=== PATIENT | male | born 1955 | race African-American/Black ===

== ENCOUNTER 2016-09-10 17:18 | Observation (INO) | payer OTHER ==
[2016-09-10] MEDS ORDERED: ASPIRIN 81 MG TABLET, CHEWABLE PO ONE (17:26)
--- NOTE | 2016-09-10 17:26 | ER Document Report ---
ED Medical Screen (RME) - General Stated Complaint: FAST HEART RATE,CHEST PAIN Notes: Patient reports history of A. fib. He is currently taking Coumadin for that. Recently drove 1300 miles from [facility] to be with his mother she was in a car accident. Reports he started feeling like his heart was racing. He reports he was cardioverted in June. Denies other symptoms such as fever vomiting diarrhea I have greeted and performed a rapid initial assessment of this patient. A comprehensive ED assessment and evaluation of the patient, analysis of test results and completion of the medical decision making process will be conducted by additional ED providers.
--- NOTE | 2016-09-10 17:48 | ER Document Report ---
ED General - General Stated Complaint: FAST HEART RATE,CHEST PAIN Mode of Arrival: Ambulatory Information source: Patient Notes: 61-year-old male history of A. fib who is on metoprolol and Coumadin presents with complaints of his heart rate racing. Patient notes that he drove here 1300 miles, has not been taking his medications appropriately. Patient does know she did take his Coumadin. Denies any chest pain or shortness of breath notes his heart rate is in the 120s to 130s Patient did take metoprolol prior to arrival - HPI Onset: Just prior to arrival Onset/Duration: Sudden Quality of pain: No pain Severity: Moderate Pain Level: Denies Associated symptoms: Other Exacerbated by: Denies Relieved by: Denies Similar symptoms previously: Yes Recently seen / treated by doctor: Yes - Related Data Home Medications: Current Home Medications Atorvastatin Calcium 20 mg PO DAILY 09/10/16 [History] Losartan Potassium 25 mg PO DAILY 09/10/16 [History] Metoprolol Tartrate [Metoprolol Tartrate] 3 tab PO BID 09/10/16 [History] Warfarin Sodium [Jantoven] 1.5 tab PO DAILY 09/10/16 [History] Past Medical History - Social History Smoking Status: Never Smoker Cigarette use (# per day): No Chew tobacco use (# tins/day): No Smoking Education Provided: No Family History: Reviewed & Not Pertinent Review of Systems - Review of Systems Notes: REVIEW OF SYSTEMS: CONSTITUTIONAL : Denies fever, chills, or sweats. Denies recent illness. EENT: Denies eye, ear, throat, or mouth pain or symptoms. Denies nasal or sinus congestion or discharge. Denies throat, tongue, or mouth swelling or difficulty swallowing. CARDIOVASCULAR: Admits palpitations RESPIRATORY: Denies cough, cold, or chest congestion. Denies shortness of breath, difficulty breathing, or wheezing. GASTROINTESTINAL: Denies abdominal pain or distention. Denies nausea, vomiting , or diarrhea. Denies blood in vomitus, stools, or per rectum. Denies black, tarry stools. Denies constipation. GENITOURINARY: Denies difficulty urinating, painful urination, burning, frequency, blood in urine, or discharge. MUSCULOSKELETAL: Denies back or neck pain or stiffness. Denies joint pain or swelling. SKIN: Denies rash, lesions or sores. HEMATOLOGIC : Denies easy bruising or bleeding. LYMPHATIC: Denies swollen, enlarged glands. NEUROLOGICAL: Denies confusion or altered mental status. Denies passing out or loss of consciousness. Denies dizziness or lightheadedness. Denies headache. Denies weakness or paralysis or loss of use of either side. Denies problems with gait or speech. Denies sensory loss, numbness, or tingling. Denies seizures. PSYCHIATRIC: Denies anxiety or stress. Denies depression, suicidal ideation, or homicidal ideation. ALL OTHER SYSTEMS REVIEWED AND NEGATIVE. Dictation was performed using [employer] voice recognition software PHYSICAL EXAMINATION: GENERAL: Well-appearing, well-nourished and in no acute distress. HEAD: Atraumatic, normocephalic. EYES: Pupils equal round and reactive to light, extraocular movements intact, sclera anicteric, conjunctiva are normal. ENT: Nares patent, oropharynx clear without exudates. Moist mucous membranes. NECK: Normal range of motion, supple without lymphadenopathy LUNGS: Breath sounds clear to auscultation bilaterally and equal. No wheezes rales or rhonchi. HEART: A. fib RVR ABDOMEN: Soft, nontender, nondistended abdomen. No guarding, no rebound. No masses appreciated. Musculoskeletal: Normal range of motion, no pitting or edema. No cyanosis. NEUROLOGICAL: Cranial nerves grossly intact. Normal speech, normal gait. Normal sensory, motor exams PSYCH: Normal mood, normal affect. SKIN: Warm, Dry, normal turgor, no rashes or lesions noted. Physical Exam - Vital signs Vitals: Resp Pulse Ox 19 95 09/10/16 17:40 09/10/16 17:40 Course - Re-evaluation Re-evalutation: 09/10/16 17:47 Patient is currently in A. fib RVR, heart rate is anywhere between 95-145, I will give some time for the metoprolol to continue working however if it does not begin to lower his heart rate I will have to start another medication - Vital Signs Vital signs: Temp Pulse Resp BP Pulse Ox 98.6 F 17 165/109 H 98 09/10/16 18:03 09/10/16 18:01 09/10/16 18:01 09/10/16 18:01 - Laboratory Result Diagrams: 09/10/16 17:47 09/10/16 17:47 Laboratory results interpreted by me: 09/10/16 09/10/16 17:47 17:47 MCH 26.5 L RDW 15.6 H PT 21.7 H APTT 39.9 H - Diagnostic Test Radiology reviewed: Image reviewed, Reports reviewed - EKG Interpretation by Me EKG shows normal: Sinus rhythm, [place] Rate: Tachycardia Rhythm: A.Fib When compared to previous EKG there are: Previous EKG unavailable Critical Care Note - Critical Care Note Total time excluding time spent on procedures (mins): 37 Comments: 37 minutes of critical care time spent in direct contact evaluating and reevaluating the patient, treating symptoms, reviewing labs and studies and speaking with family and consultants excluding any procedures Discharge - Discharge Clinical Impression: Atrial fibrillation with rapid ventricular response Hypertension Qualifiers: Hypertension type: essential hypertension Qualified Code(s): I10 - Essential ( primary) hypertension Condition: Stable Disposition: ADMITTED OBSERVATION Admitting Provider: Hospitalist Unit Admitted: Telemetry
[2016-09-10 18:07] LABS: ABSOLUTE EOSINOPHILS # (AUTO) 0.1 10^3/uL (0.0-0.6); ABSOLUTE LYMPHOCYTES (AUTO) 2.4 10^3/uL (0.5-4.7); ABSOLUTE MONOCYTES (AUTO) 0.7 10^3/uL (0.1-1.4); ABSOLUTE NEUT (AUTO) 3.3 10^3/uL (1.7-8.2); BASOPHILS % (AUTO) 0.4 % (0-2); EOSINOPHILS % (AUTO) 2.1 % (0-6); HEMATOCRIT 42.8 % (37.9-51.0); HGB HCT DIFFERENCE -0.8; LYMPHOCYTES % (AUTO) 37.1 % (13-45); MEAN CORPUSCULAR HEMOGLOBIN 26.5 pg (27.0-33.4); MEAN CORPUSCULAR HGB CONC 32.8 g/dL (32.0-36.0); MEAN CORPUSCULAR VOLUME 81 fl (80-97); MONOCYTES % (AUTO) 10.4 % (3-13); RED CELL DISTRIBUTION WIDTH 15.6 % (11.5-14.0); WHITE BLOOD COUNT 6.6 10^3/uL (4.0-10.5)
[2016-09-10 18:16] LABS: PROTHROMBIN TIME 21.7 SEC (11.4-15.4)
[2016-09-10 18:17] LABS: PARTIAL THROMBOPLASTIN TIME 39.9 SEC (23.5-35.8)
[2016-09-10] MEDS ORDERED: DILTIAZEM HCL/D5W 125 ML IV PRN (18:23)
[2016-09-10] MEDS ORDERED: DILTIAZEM HCL INJ 25 MG/5 ML VIAL IV ONE (18:23)
[2016-09-10] MEDS ORDERED: NORMAL SALINE 1000 ML 1,000 ML IV ONE (18:24)
[2016-09-10 18:28] LABS: ALANINE AMINOTRANSFERASE 25 U/L (21-72); ALBUMIN 4.1 g/dL (3.5-5.0); ALKALINE PHOSPHATASE 94 U/L (38-126); ANION GAP 13 (5-19); ASPARTATE AMINO TRANSFERASE 28 U/L (17-59); BILIRUBIN,TOTAL 0.7 mg/dL (0.2-1.3); BLOOD UREA NITROGEN 12 mg/dL (7-20); CALCIUM 9.1 mg/dL (8.4-10.2); CARBON DIOXIDE 25 mmol/L (22-30); CHLORIDE 104 mmol/L (98-107); CREATINE KINASE 105 U/L (55-170); CREATININE RESULT 1.04 mg/dL (0.52-1.25); GLUCOSE 96 mg/dL (75-110); POTASSIUM 3.9 mmol/L (3.6-5.0); TOTAL PROTEIN 6.9 g/dL (6.3-8.2)
[2016-09-10 18:42] LABS: CREATINE KINASE MB 0.56 ng/mL (<4.55)
[2016-09-10 18:43] LABS: TROPONIN I < 0.012 ng/mL
[2016-09-10] MEDS ORDERED: ACETAMINOPHEN 325 MG TABLET PO PRN (18:57)
[2016-09-10] MEDS ORDERED: ONDANSETRON HCL INJ/PF 4 MG/2 ML SDV IV PRN (18:57)
--- NOTE | 2016-09-10 19:08 | PDOC H&P ---
History of Present Illness Admission Date/PCP: 09/10/16 18:44 Patient complains of: Elevated heart rate History of Present Illness: BAL LÓPEZ is a 61 year old male, with hypertension and atrial fibrillation missed the doses of all his medications for 2 days started to note increasing heart rate and palpitations. Patient has an ric in her cell phone and monitors his heart rate. He had traveled from [place] the [facility] to visit his monitor and during that period he has not taken his medication. While at home in his heart monitor he noted that his heart rate was elevated. He feels a little bit tired. He took his medication but heart rate still elevated therefore the patient presents to the emergency room where he was given Cardizem IV and started on a drip. His heart rate got controlled. He was referred for admission. He denies any chest pain, shortness of breath , nausea or vomiting, diaphoresis. No dizziness or lightheadedness. Past Medical History Cardiac Medical History: Reports: Atrial Fibrillation, Hypertension Endocrine Medical History: Reports: Obesity, Other - Patient reports prediabetes stage Past Surgical History Past Surgical History: Reports: Orthopedic Surgery - Left Knee, Other - Cardioversion Social History Information Source: Patient Smoking Status: Never Smoker Frequency of Alcohol Use: None Hx Recreational Drug Use: No Drugs: None Family History Family History: Other - Atrial fibrillation Parental Family History Reviewed: Yes Children Family History Reviewed: Yes Sibling(s) Family History Reviewed.: Yes Medication/Allergy Home Medications: Atorvastatin Calcium 20 mg PO DAILY 09/10/16 Losartan Potassium 25 mg PO DAILY 09/10/16 Metoprolol Tartrate [Metoprolol Tartrate] 3 tab PO BID 09/10/16 Warfarin Sodium [Jantoven] 1.5 tab PO DAILY 09/10/16 Allergies/Adverse Reactions: No Known Allergies Allergy (Unverified 09/10/16 18:38) Review of Systems Constitutional: ABSENT: chills, fever(s), headache(s), night sweats, weight gain , weight loss Eyes: ABSENT: visual disturbances Ears: ABSENT: hearing changes Nose, Mouth, and Throat: ABSENT: mouth pain, sore throat Cardiovascular: ABSENT: chest pain, dyspnea on exertion, edema, orthropnea, palpitations Respiratory: ABSENT: cough, hemoptysis Gastrointestinal: ABSENT: abdominal pain, constipation, diarrhea, hematemesis, hematochezia, nausea, vomiting Genitourinary: ABSENT: dysuria, hematuria Musculoskeletal: ABSENT: joint swelling Integumentary: ABSENT: rash, wounds Neurological: ABSENT: abnormal gait, abnormal speech, confusion, dizziness, focal weakness, syncope Psychiatric: ABSENT: anxiety, depression, homidical ideation, suicidal ideation Endocrine: ABSENT: cold intolerance, heat intolerance, polydipsia, polyuria Hematologic/Lymphatic: ABSENT: easy bleeding, easy bruising Physical Exam Vital Signs: Temp Pulse Resp BP Pulse Ox 98.6 F 22 H 117/63 100 09/10/16 18:03 09/10/16 18:46 09/10/16 18:46 09/10/16 18:46 General appearance: PRESENT: no acute distress, cooperative, morbidly obese Head exam: PRESENT: atraumatic, normocephalic Eye exam: PRESENT: conjunctiva pink, EOMI, PERRLA. ABSENT: scleral icterus Ear exam: PRESENT: drainage, normal external ear exam Mouth exam: PRESENT: moist, neck supple, tongue midline Neck exam: ABSENT: carotid bruit, JVD, lymphadenopathy, thyromegaly Respiratory exam: PRESENT: clear to auscultation jonathan. ABSENT: rales, rhonchi, wheezes Cardiovascular exam: PRESENT: irregular rhythm, +S1, +S2. ABSENT: diastolic murmur, gallop, rubs, systolic murmur Pulses: PRESENT: normal dorsalis pedis pul Vascular exam: PRESENT: normal capillary refill GI/Abdominal exam: PRESENT: normal bowel sounds, soft. ABSENT: distended - Obese, guarding, mass, organolmegaly, rebound, tenderness Rectal exam: PRESENT: deferred Extremities exam: PRESENT: full ROM. ABSENT: calf tenderness, clubbing, pedal edema Neurological exam: PRESENT: alert, awake, oriented to person, oriented to place , oriented to time, oriented to situation Psychiatric exam: PRESENT: appropriate affect, normal mood. ABSENT: homicidal ideation, suicidal ideation Skin exam: PRESENT: dry, intact, warm. ABSENT: cyanosis, rash Results Impressions: Chest X-Ray 09/10/16 17:25 IMPRESSION: NO ACUTE RADIOGRAPHIC FINDING IN THE CHEST. Assessment & Plan - Diagnosis (1) Atrial fibrillation with RVR Is this a current diagnosis for this admission?: Yes (2) HTN (hypertension) Qualifiers: Hypertension type: essential hypertension Qualified Code(s): I10 - Essential (primary) hypertension Is this a current diagnosis for this admission?: Yes (3) Diabetes mellitus type II, controlled Qualifiers: Diabetes mellitus complication status: with unspecified complications Diabetes mellitus detention insulin use: without intermediate card tender use Qualified Code(s): E11.8 - Type 2 diabetes mellitus with unspecified complications; Z79.4 - termite technician (current) use of insulin Is this a current diagnosis for this admission?: Yes (4) Morbid obesity Qualifiers: Obesity type: unspecified obesity type Qualified Code(s): E66.01 - Morbid (severe) obesity due to excess calories Is this a current diagnosis for this admission?: Yes - Time Time Spent: 30 to 50 Minutes - Plan Summary Plan Summary: Patient will be under observation. We will resume the metoprolol. We did a Cardizem drip to off. We will increase the warfarin to 6 mg and recheck INR in the morning. If heart rate is controlled we will discharge the patient in the morning.
[2016-09-10 20:02] LABS: THYROID STIMULATING HORMONE 2.67 uIU/mL (0.47-4.68)
[2016-09-10] MEDS ORDERED: WARFARIN SODIUM 3 MG TABLET PO SCH (22:00)
[2016-09-11] MEDS ORDERED: LANSOPRAZOLE 30 MG TAB.RAP.DR PO SCH (06:00)
[2016-09-11 06:10] LABS: PROTHROMBIN TIME 23.2 SEC (11.4-15.4)
[2016-09-11 06:25] LABS: ANION GAP 8 (5-19); BLOOD UREA NITROGEN 9 mg/dL (7-20); CARBON DIOXIDE 28 mmol/L (22-30); CHLORIDE 106 mmol/L (98-107); CREATININE RESULT 0.99 mg/dL (0.52-1.25); GLUCOSE 93 mg/dL (75-110); MAGNESIUM 1.9 mg/dL (1.6-2.3); PHOSPHORUS 3.3 mg/dL (2.5-4.5); POTASSIUM 3.7 mmol/L (3.6-5.0); SODIUM 141.9 mmol/L (137-145)
[2016-09-11] MEDS ORDERED: METOPROLOL SUCCINATE 25 MG TAB.SR.24H PO ONE (09:30)
[2016-09-11] MEDS ORDERED: METOPROLOL TARTRATE 25 MG TABLET PO ONE (09:30)
[2016-09-11] MEDS ORDERED: LOSARTAN POTASSIUM 25 MG TABLET PO SCH (10:00)
[2016-09-11] MEDS ORDERED: DOCUSATE SODIUM 100 MG CAPSULE PO SCH (10:00)
[2016-09-11] MEDS ORDERED: ATORVASTATIN CALCIUM 20 MG TABLET PO SCH (10:00)
--- NOTE | 2016-09-11 10:41 | PDOC DISCHARGE SUMMARY ---
General - Admit/Disc Date/PCP Admission Date/Primary Care Provider: 09/10/16 18:57 Discharge Date: 09/11/16 - Discharge Diagnosis (1) Atrial fibrillation with RVR Is this a current diagnosis for this admission?: Yes (2) HTN (hypertension) Is this a current diagnosis for this admission?: Yes (3) Diabetes mellitus type II, controlled Is this a current diagnosis for this admission?: Yes (4) Morbid obesity Is this a current diagnosis for this admission?: Yes - Additional Information Resuscitation Status: Full Code Discharge Diet: Cardiac - low-fat low-salt, Diabetic - no concentrated sweets Discharge Activity: Activity As Tolerated, Balance Activity w/Rest, Slowly Increase Activity Home Medications: Atorvastatin Calcium [Lipitor 20 mg Tablet] 20 mg PO DAILY 09/11/16 Losartan Potassium [Cozaar 25 mg Tablet] 25 mg PO DAILY 09/11/16 Metoprolol Tartrate [Lopressor 25 mg Tablet] 75 mg PO BID 09/11/16 Warfarin Sodium [Jantoven] 7.5 mg PO DAILY 09/11/16 Additional Information: PT/INR with primary care physician in one week History of Present Illness Patient complains of: Palpitation History of Present Illness: BAL LÓPEZ is a 61 year old male, with hypertension and atrial fibrillation missed the doses of all his medications for 2 days started to note increasing heart rate and palpitations. Patient has an ric in her cell phone and monitors his heart rate. He had traveled from [place] the [facility] to visit his monitor and during that period he has not taken his medication. While at home in his heart monitor he noted that his heart rate was elevated. He feels a little bit tired. He took his medication but heart rate still elevated therefore the patient presents to the emergency room where he was given Cardizem IV and started on a drip. His heart rate got controlled. He was referred for admission. He denies any chest pain, shortness of breath , nausea or vomiting, diaphoresis. No dizziness or lightheadedness. Hospital Course Hospital Course: The patient was admitted to observation with telemetry. Cardizem drip was discontinued. Patient was maintained on his metoprolol at 75 mg twice a day and a heart rate got controlled. Patient reports that he was down to 50 mg twice a day after cardioversion and he went to sinus. He is currently in atrial fibrillation but his heart rate is controlled and was advised to stay at 75 mg twice a day. TSH and free T4 is normal. The patient was counseled about taking his medication and not missing it and he understood. His INR increased to 1.97 today. Apparently he takes 7-1/2 mg of warfarin to 5 mg. He was advised to resume his regular dose and recheck PT/INR in 1 week primary care physician. The rest of the hospital station unremarkable. Physical Exam Vital Signs: Temp Pulse Resp BP Pulse Ox 98.5 F 78 16 129/61 H 100 09/11/16 07:13 09/11/16 07:13 09/11/16 07:13 09/11/16 07:13 09/11/16 07:13 Intake & Output 09/10/16 09/11/16 09/12/16 06:59 06:59 06:59 Intake Total 310 Balance 310 Weight 207 kg General appearance: PRESENT: no acute distress, cooperative, morbidly obese Head exam: PRESENT: normocephalic Eye exam: PRESENT: EOMI Mouth exam: PRESENT: moist, neck supple Neck exam: ABSENT: JVD Respiratory exam: PRESENT: clear to auscultation jonathan. ABSENT: rhonchi, wheezes Cardiovascular exam: PRESENT: irregular rhythm. ABSENT: gallop GI/Abdominal exam: PRESENT: normal bowel sounds, soft. ABSENT: tenderness Extremities exam: PRESENT: other - Trace pretibial edema Neurological exam: PRESENT: alert, awake, oriented to person, oriented to place , oriented to time, oriented to situation Skin exam: PRESENT: dry, warm. ABSENT: cyanosis Results Laboratory Results: 09/11/16 05:33 09/11/16 05:33 Sodium 141.9 Potassium 3.7 Chloride 106 Carbon Dioxide 28 Anion Gap 8 BUN 9 Creatinine 0.99 Est GFR ( Amer) > 60 Est GFR (Non-Af Amer) > 60 Glucose 93 Calcium 9.0 Phosphorus 3.3 Magnesium 1.9 Impressions: Chest X-Ray 09/10/16 17:25 IMPRESSION: NO ACUTE RADIOGRAPHIC FINDING IN THE CHEST. Qualifiers PATEINT BEING DISCHARGED WITH ANY OF THE FOLLOWING DIAGNOSIS?: No Plan Discharge Plan: Follow-up with his primary care physician in one week. Follow-up with his caretaker in 2 weeks. Time Spent: Less than 30 Minutes
[2016-09-11 11:57] VITALS: BP 120/68
--- NOTE | 2016-09-11 17:42 | EKG REPORT ---
SEVERITY:- ABNORMAL ECG - ATRIAL FIBRILLATION, V-RATE 84-163 MULTIFORM VENTRICULAR PREMATURE COMPLEXES PROBABLE POSTERIOR INFARCT BORDERLINE PROLONGED QT INTERVAL : Confirmed by: Melissa Kaiser MD 11-Sep-2016 17:41:51
[2016-09-11] MEDS ORDERED: METOPROLOL TARTRATE 25 MG TABLET PO SCH (22:00)
[2016-09-11] MEDS ORDERED: METOPROLOL SUCCINATE 25 MG TAB.SR.24H PO SCH (22:00)
== END 2016-09-11 14:50 | disposition home or self-care (01) ==
LOC: ER 17:18 → EH 18:44 → UNDOADMOB 18:44 → EH 18:57 → 3W 22:00
PROC: 3E0337Z Introduction of Electrolytic and Water Balance Substance into Peripheral Vein, Percutaneous Approach (ICD-10-PCS; principal; 2016-09-10)
PROC: 3E033GC Introduction of Other Therapeutic Substance into Peripheral Vein, Percutaneous Approach (ICD-10-PCS; 2016-09-10)
DX: I48.91 Unspecified atrial fibrillation (principal); I10 Essential (primary) hypertension; E11.9 Type 2 diabetes mellitus without complications; E66.01 Morbid (severe) obesity due to excess calories; Z79.01 Long term (current) use of anticoagulants; Z68.43 Body mass index [BMI] 50.0-59.9, adult
CPT/HCPCS: 93005; 99291; 96361; 96365; 36415 ×2; 84439; 82553; 82550; 83735; 84100; 84443; 85025; 85610 ×2; 85730; 80048; 80053; 84484; 71010; 93010; G0378 ×2; J3490 ×3; J7030